=== PATIENT | male | born 1965 | race Two or more races ===

== ENCOUNTER 2022-01-11 16:53 | Emergency (ER) | payer OTHER ==
[~2022-01-11] VITALS: Ht 193 cm; Wt 113.4 kg
[2022-01-11] MEDS ORDERED: ACETAMINOPHEN 325 MG TABLET PO ONE (19:15)
[2022-01-11] MEDS ORDERED: ACETAMINOPHEN 325 MG TABLET ONE (19:20)
[2022-01-11 19:39] LABS: HEMATOCRIT 45.4 % (36.7-47.1); MEAN CORPUSCULAR HEMOGLOBIN 30.1 uug (23.8-33.4); MEAN CORPUSCULAR VOLUME 91.2 fL (73.0-96.2); PLATELET COUNT (AUTO) 232 K/uL (152-348)
[2022-01-11 19:50] LABS: CREATININE 0.8 mg/dL (0.6-1.3)
[2022-01-11 19:54] LABS: BILIRUBIN,DIRECT 0.2 mg/dL (0.0-0.2); BILIRUBIN,TOTAL 0.7 mg/dL (0.2-1.0); TOTAL PROTEIN, SERUM 7.8 g/dL (6.4-8.2)
[2022-01-11 19:56] LABS: *BILIRUBIN,URIN NEGATIVE (NEGATIVE); *BLOOD, URINE NEGATIVE (NEGATIVE); *CLARITY,URINE CLEAR (CLEAR); *COLOR,URINE YELLOW (YELLOW); *KETONES,URINE NEGATIVE (NEGATIVE); *UROBILINOGEN,URINE >=8.0 E.U./dl (NORMAL); LEUKOCYTE ESTERASE ,URINE NEGATIVE (NEGATIVE); NITRITE, URINE NEGATIVE (NEGATIVE); UGLUCOSE 3+ (NEGATIVE)
[2022-01-11 20:08] LABS: *AMPHETAMINE, URINE POSITIVE (NEGATIVE); *CANNABINOID, URINE NEGATIVE (NEGATIVE); *COCCAINE, URINE POSITIVE (NEGATIVE); *OPIATE, URINE NEGATIVE (NEGATIVE); *PHENCYCLIDINE SCREEN,URINE NEGATIVE (NEGATIVE)
--- NOTE | 2022-01-11 20:20 | NUR ---
Patient eloped from facility. ER physician Tonio notified.
== END 2022-01-11 20:20 | disposition left against medical advice (07) ==
LOC: ER 16:53
DX: R10.84 Generalized abdominal pain (principal); Z53.20 Procedure and treatment not carried out because of patient's decision for unspecified reasons
CPT/HCPCS: 36415; 83690; 85025; A4663

== ENCOUNTER 2024-01-30 14:35 | Emergency (ER) | payer OTHER ==
[~2024-01-30] VITALS: Ht 193 cm; Wt 95.3 kg
[2024-01-30 15:35] LABS: BASOPHILS % (AUTO) 0.1 % (0.0-2.0); HEMOGLOBIN 14.9 g/dL (12.5-16.3); LYMPHOCYTES # (AUTO) 1.4 K/uL (0.8-4.8); LYMPHOCYTES % (AUTO) 12.2 % (20.5-51.5); MEAN CORPUSCULAR HEMOGLOBIN 27.4 uug (23.8-33.4); MEAN CORPUSCULAR HGB CONC 32 g/dL (32.5-36.3); MEAN CORPUSCULAR VOLUME 84.8 fL (73.0-96.2); MONOCYTES # (AUTO) 0.5 K/uL (0.1-1.30); MONOCYTES % (AUTO) 3.8 % (0.0-11.0); NEUTROPHILS # (AUTO) 9.9 K/uL (1.8-8.9); NEUTROPHILS % (AUTO) 83.9 % (38.5-71.5); PLATELET COUNT (AUTO) 542 K/uL (152-348); RED BLOOD CELL COUNT(AUTO) 5.43 MIL/uL (4.06-5.63); RED CELL DISTRIBUTION WIDTH 16.2 % (12.1-16.2); WHITE BLOOD COUNT (AUTO) 11.8 K/uL (3.6-10.2)
[2024-01-30 15:38] LABS: DIFFERENTIAL COMMENT 1
[2024-01-30 15:47] LABS: ALBUMIN 1.6 g/dL (3.4-5.0); BILIRUBIN,TOTAL 1.4 mg/dL (0.2-1.0); CALCIUM 9.2 mg/dL (8.5-10.1); CREATININE 1.2 mg/dL (0.6-1.3); POTASSIUM 4.1 mmol/L (3.5-5.1); TOTAL PROTEIN, SERUM 7.5 g/dL (6.4-8.2)
[2024-01-30] MEDS: IV NORMAL SALINE 1000 ML BAG IV ONE (16:02)
[2024-01-30] MEDS ORDERED: ONDANSETRON 4 MG/2 ML VIAL ONE (16:05)
[2024-01-30] MEDS ORDERED: HYDROMORPHONE 1 MG/1 ML DISP.SYRIN ONE ×2 (16:05→18:08)
[2024-01-30] MEDS: IV NS 1000 ML 1,000 ML IV ONE ×2 (16:35→17:51)
[2024-01-30] MEDS: ONDANSETRON 4 MG/2 ML VIAL IV ONE (16:35)
[2024-01-30] MEDS: HYDROMORPHONE 1 MG/1 ML DISP.SYRIN IV ONE ×4 (16:35→20:15)
[2024-01-30] MEDS ORDERED: OXACILLIN SODIUM 2 GM ONE (17:16)
[2024-01-30] MEDS: OXACILLIN SODIUM 2 G in IV NORMAL SALINE 100 ML IV ONE (17:21)
[2024-01-30] MEDS ORDERED: NOREPINEPHRINE 8MG/NS 250ML 250 ML IV ONE ×3 (18:34→21:33)
[2024-01-30 18:42] VITALS: BP 65/43
[2024-01-30] MEDS: NOREPINEPHRINE BITARTRATE 8 MG in IV NORMAL SALINE 250 ML IV ONE (18:42)
[2024-01-30] MEDS ORDERED: HYDROMORPHONE 2 MG/1 ML DISP.SYRIN ONE ×2 (18:58→20:12)
[2024-01-30] MEDS: PIPERACILLIN SODIUM/TAZOBACTAM 3.375 G in IV DEXTROSE 5% 50 ML IV ONE (20:15)
[2024-01-30] MEDS ORDERED: VANCOMYCIN IV 200 ML ONE (20:22)
[2024-01-30] MEDS ORDERED: PANTOPRAZOLE SODIUM 40 MG VIAL ONE (20:22)
[2024-01-30] MEDS ORDERED: PIPERACILLIN/TAZOBACTAM/D5W 50 ML IV ONE (20:22)
[2024-01-30 20:27] LABS: CALCIUM 8.3 mg/dL (8.5-10.1); CARBON DIOXIDE 19 mmol/L (21-32); CHLORIDE 99 mmol/L (98-107); CREATININE 1.5 mg/dL (0.6-1.3); GLUCOSE 326 mg/dL (74-106); SODIUM SERUM 132 mmol/L (136-145); UREA NITROGEN, BLOOD 24 mg/dL (7-18)
[2024-01-30 20:29] LABS: ACETONE, SERUM NEGATIVE (NEGATIVE)
[2024-01-30] MEDS: VANCOMYCIN IV 1,000 MG in IV DEXTROSE 5% 250 ML IV ONE (20:46)
[2024-01-30] MEDS: PANTOPRAZOLE SODIUM IV 80 MG in IV DEXTROSE 5% 100 ML IV ONE (20:47)
[2024-01-30 21:08] VITALS: O2SAT 100
== END 2024-01-30 21:10 | disposition short-term general hospital (02) ==
LOC: ER 14:35
DX: A41.9 Sepsis, unspecified organism (principal); R65.20 Severe sepsis without septic shock; D73.3 Abscess of spleen; E11.65 Type 2 diabetes mellitus with hyperglycemia; E87.20 Acidosis, unspecified; F11.20 Opioid dependence, uncomplicated; F17.210 Nicotine dependence, cigarettes, uncomplicated; I10 Essential (primary) hypertension; K59.00 Constipation, unspecified; M62.84 Sarcopenia; I95.9 Hypotension, unspecified; R06.00 Dyspnea, unspecified; Z20.822 Contact with and (suspected) exposure to COVID-19; Z88.7 Allergy status to serum and vaccine
CPT/HCPCS: 36415; 71045; 83605; 84484; 85025; 85730; 87040; 87077; A4606; A4663; J1171; J2405; J2470; J2543; J2700; J3370; J7040